=== PATIENT | male | born 1960 | race Caucasian/White ===

== ENCOUNTER 2024-04-14 17:56 | Emergency (ER) | payer BC ==
[~2024-04-14 17:56] MED LIST: Iopamidol 300 61% 100 ML VIAL FS ONE
[2024-04-14] MEDS ORDERED: Ondansetron PF 4 MG/2 ML Vial ONE (18:28)
[2024-04-14] MEDS ORDERED: Morphine 4 MG/ML VIAL ONE (18:28)
[2024-04-14 19:14] LABS: #Basophils 0.05 10x3/uL (0.0-0.2); #Eosinophils 0.28 10x3/uL (0.0-0.5); #Monocytes 0.86 10x3/uL (0.0-1.1); #Neutrophils 7.18 10x3/uL (1.5-8.4); %Basophils 0.5 % (0.0-2.0); %Eosinophils 2.9 % (0.0-6.0); %Lymphocytes 11.4 % (18.0-47.0); %Neutrophils 75.6 % (40.0-75.0); Hematocrit 40.3 % (38.8-50.0); Hemoglobin 13.7 g/dL (13.5-17.5); Mean Corpuscular Hemoglobin 32.2 pg (27.0-33.0); Mean Corpuscular Volume 94.8 fL (81.2-95.1); Mean Platelet Volume 11.4 fL (7.4-10.4); Platelet Count 213 10x3/uL (150-450); RBC Distribution Width 13.1 % (11.5-14.5); Red Blood Cell (RBC) Count 4.25 10x6/uL (4.32-5.72); White Blood Cell (WBC) Count 9.52 10x3/uL (3.5-10.5)
[2024-04-14 19:25] LABS: ALT (SGPT) 16 U/L (Less than 45); AST (SGOT) 25 U/L (11-34); Alkaline Phosphatase 59 U/L (40-110); Anion Gap 13 mmol/L (10-20); BUN (Urea Nitrogen) 14 mg/dL (8.4-25.7); Bilirubin, Total 0.3 mg/dL (0.3-1.2); Calc. Creatinine Clearance 0 mL/min (70-130); Calcium 9.7 mg/dL (7.8-10.44); Carbon Dioxide 24 mmol/L (23-31); Chloride 106 mmol/L (98-107); Estimated GFR 91; Globulin 2.5 g/dL (2.4-3.5); Glucose 199 mg/dL (80-115); Lipase 35 U/L (8-78); Potassium 3.8 mmol/L (3.5-5.1); Protein, Total 6.5 g/dL (5.8-8.1); Sodium 139 mmol/L (136-145)
[2024-04-14] MEDS ORDERED: fentaNYL 50 mcg/mL 1 mL Vial ONE (19:31)
[2024-04-14 20:15] LABS: Bilirubin Neg (Negative); Blood, Urine Negative (Negative); Clarity Clear (Clear); Glucose, Urine (Dipstick) Normal (Negative); Ketone, Urine Negative (Negative); Leukocyte Negative (Negative); Nitrite Negative (Negative); Protein, Urine (Dipstick) 15 mg/dl (Neg-Trace); Specific Gravity, Urine 1.005 (1.005-1.030); Urobilinogen Normal mg/dL (Less than 2)
[2024-04-14 20:22] LABS: CAUTI Indications for Culture Pelvic or flank pain; RBC/HPF None Seen HPF (0-3); Squamous Epithelial None Seen HPF (0-3); WBC/HPF None Seen HPF (0-3)
[2024-04-14 20:23] LABS: Bacteria/HPF None Seen HPF (None Seen); Urine Culture Reflex No No
[2024-04-14] MEDS ORDERED: Methocarbamol 500 MG TAB ONE (20:56)
[2024-04-14] MEDS ORDERED: Lidocaine 4% Patch ONE (20:56)
== END 2024-04-14 21:01 | disposition home or self-care (01) ==
LOC: CSHERS 17:56
DX: S30.1XXA Contusion of abdominal wall, initial encounter (principal); I10 Essential (primary) hypertension; J44.89 Other specified chronic obstructive pulmonary disease; E03.9 Hypothyroidism, unspecified; E11.9 Type 2 diabetes mellitus without complications; F17.210 Nicotine dependence, cigarettes, uncomplicated; W20.8XXA Other cause of strike by thrown, projected or falling object, initial encounter
CPT/HCPCS: 36415; 71045; 74177; 80053; 81001; 83690; 85025; 86850; 86900; 86901; 93005; 96374; 96375; J2270; J2405; J3010; Q9967

== ENCOUNTER 2024-10-05 15:43 | Emergency (ER) | payer BC ==
[2024-10-05 16:49] LABS: #Basophils 0.06 10x3/uL (0.0-0.2); #Eosinophils 0.39 10x3/uL (0.0-0.5); #Monocytes 0.70 10x3/uL (0.0-1.1); #Neutrophils 7.05 10x3/uL (1.5-8.4); %Basophils 0.6 % (0.0-2.0); %Eosinophils 4.0 % (0.0-6.0); %Lymphocytes 15.2 % (18.0-47.0); %Monocytes 7.2 % (0.0-10.0); %Neutrophils 72.8 % (40.0-75.0); Hematocrit 42.0 % (38.8-50.0); Hemoglobin 14.3 g/dL (13.5-17.5); Mean Corpuscular Hemoglobin 33.0 pg (27.0-33.0); Mean Corpuscular Volume 97.0 fL (81.2-95.1); Platelet Count 251 10x3/uL (150-450); Red Blood Cell (RBC) Count 4.33 10x6/uL (4.32-5.72); White Blood Cell (WBC) Count 9.69 10x3/uL (3.5-10.5)
[2024-10-05] MEDS ORDERED: Ondansetron PF 4 MG/2 ML Vial ONE (16:58)
[2024-10-05 17:07] LABS: ALT (SGPT) 25 U/L (Less than 45); AST (SGOT) 28 U/L (11-34); Albumin 4.2 g/dL (3.1-4.5); Alkaline Phosphatase 67 U/L (40-110); Anion Gap 17 mmol/L (10-20); BUN (Urea Nitrogen) 20 mg/dL (8.4-25.7); Bilirubin, Total 0.3 mg/dL (0.3-1.2); Calc. Creatinine Clearance 0 mL/min (70-130); Calcium 9.9 mg/dL (7.8-10.44); Carbon Dioxide 22 mmol/L (23-31); Chloride 106 mmol/L (98-107); Globulin 2.5 g/dL (2.4-3.5); Glucose 152 mg/dL (80-115); Lipase 30 U/L (8-78); Potassium 4.3 mmol/L (3.5-5.1); Sodium 141 mmol/L (136-145)
[2024-10-05] MEDS ORDERED: HYDROmorphone 0.5 MG/0.5 ML SYRINGE ONE (18:40)
[2024-10-05] MEDS ORDERED: Dicyclomine 20 MG TAB ONE (18:41)
[2024-10-05 19:30] LABS: Glucose, Urine (Dipstick) Normal (Negative); Leukocyte Negative (Negative); Protein, Urine (Dipstick) 15 mg/dl (Neg-Trace); Specific Gravity, Urine 1.015 (1.005-1.030)
[2024-10-05 20:12] LABS: CAUTI Indications for Culture Pelvic or flank pain; RBC/HPF 0-3 HPF (0-3); WBC/HPF 0-3 HPF (0-3)
[2024-10-05 20:13] LABS: Bacteria/HPF Rare-Few HPF (None Seen)
[2024-10-05 20:14] LABS: Mucous/LPF Rare LPF (<2+)
[2024-10-05 20:15] LABS: Urine Culture Reflex No No
== END 2024-10-05 19:31 | disposition home or self-care (01) ==
LOC: CSHERS 15:43
DX: R10.12 Left upper quadrant pain (principal); R10.13 Epigastric pain; K44.9 Diaphragmatic hernia without obstruction or gangrene; J44.89 Other specified chronic obstructive pulmonary disease; I10 Essential (primary) hypertension; F17.210 Nicotine dependence, cigarettes, uncomplicated
CPT/HCPCS: 71260; 74177; 80053; 81001; 83605; 83690; 85025; 93005; 96374; 96375; 96376; J1171; J2270; J2405; Q9967

== ENCOUNTER 2024-10-16 10:51 | Outpatient (CLI) | payer BC ==
[2024-10-16 13:41] LABS: #Basophils 0.07 10x3/uL (0.0-0.2); #Eosinophils 0.49 10x3/uL (0.0-0.5); #Monocytes 0.74 10x3/uL (0.0-1.1); #Neutrophils 6.62 10x3/uL (1.5-8.4); %Basophils 0.7 % (0.0-2.0); %Eosinophils 5.0 % (0.0-6.0); %Lymphocytes 18.0 % (18.0-47.0); %Monocytes 7.6 % (0.0-10.0); %Neutrophils 68.3 % (40.0-75.0); Hematocrit 43.4 % (38.8-50.0); Hemoglobin 14.4 g/dL (13.5-17.5); Mean Corpuscular Hemoglobin 32.7 pg (27.0-33.0); Mean Corpuscular Volume 98.6 fL (81.2-95.1); Platelet Count 284 10x3/uL (150-450); Red Blood Cell (RBC) Count 4.40 10x6/uL (4.32-5.72); White Blood Cell (WBC) Count 9.71 10x3/uL (3.5-10.5)
[2024-10-16 14:07] LABS: Anion Gap 16 mmol/L (10-20); BUN (Urea Nitrogen) 23 mg/dL (8.4-25.7); Calc. Creatinine Clearance 0 mL/min (70-130); Calcium 9.8 mg/dL (7.8-10.44); Carbon Dioxide 25 mmol/L (23-31); Chloride 100 mmol/L (98-107); Glucose 236 mg/dL (80-115); Potassium 4.9 mmol/L (3.5-5.1); Sodium 136 mmol/L (136-145)
== END 2024-10-16 10:52 | disposition home or self-care (01) ==
LOC: CSHLAB 10:51
PROVIDERS: ATTEND Specialist
DX: Z01.818 Encounter for other preprocedural examination (principal); Q79.0 Congenital diaphragmatic hernia
CPT/HCPCS: 71046; 80048; 85025

== ENCOUNTER 2024-10-22 08:53 | Observation (INO) | payer BC ==
[2024-10-22] MEDS ORDERED: Ketorolac Tromethamine 30 MG (1 mL) VIAL ONE (09:20)
[2024-10-22] MEDS ORDERED: Acetaminophen 500 MG TAB ONE (09:20)
[2024-10-22] MEDS ORDERED: Bupivacaine/Epinephrine 0.25% 30 ML VIAL ONE (09:28)
[2024-10-22] MEDS ORDERED: CEFAZOLIN 2 GM VIAL ONE (09:28)
[2024-10-22] MEDS ORDERED: PROPOFOL 20 ML ONE ×2 (10:03→11:25)
[2024-10-22] MEDS ORDERED: Rocuronium Bromide 10 MG/ML (10ML VIAL) ONE ×2 (10:07→11:50)
[2024-10-22] MEDS ORDERED: Lidocaine 1% PF 5 ML VIAL ONE (10:07)
[2024-10-22] MEDS ORDERED: Phenylephrine 40 MG/NS 250 ML 0 ML ONE (10:36)
[2024-10-22] MEDS ORDERED: NOREPINEPHRINE 8 MG/250 ML-D5W 0 ML ONE (10:37)
[2024-10-22] MEDS ORDERED: Metoprolol Tartrate 5 MG (5 mL) VIAL ONE (11:31)
[2024-10-22] MEDS ORDERED: Ondansetron PF 4 MG/2 ML Vial ONE (13:03)
[2024-10-22] MEDS ORDERED: SUGAMMADEX SODIUM 200 MG/2 ML VIAL ONE (13:03)
[2024-10-22] MEDS ORDERED: hydrALAZINE 20 MG/ML VIAL SLOW IVP PRN (15:48)
[2024-10-22] MEDS ORDERED: Ondansetron PF 4 MG/2 ML Vial IVP PRN (15:48)
[2024-10-22 16:01] VITALS: BMI 23.7
[2024-10-22] MEDS: Ketorolac Tromethamine 30 MG (1 mL) VIAL IVP SCH (18:00)
[2024-10-22] MEDS: Lisinopril 20 MG TAB PO SCH (21:25)
[2024-10-22] MEDS: Famotidine 20 MG TAB PO SCH (21:25)
[2024-10-22] MEDS: Pantoprazole 40 MG DR.TAB PO SCH (21:26)
[2024-10-22] MEDS: metFORMIN 500 MG TAB PO SCH (21:26)
[2024-10-22] MEDS: Metoprolol Succinate XL 25 MG ER.TAB PO SCH (21:26)
[2024-10-22] MEDS: Lantus 1000 UNITS/10 ML VIAL SC SCH (21:27)
[2024-10-22] MEDS: Famotidine/PF 20 mg/2ml Vial SLOW IVP SCH (22:02)
[2024-10-23 03:39] LABS: #Basophils 0.04 10x3/uL (0.0-0.2); #Eosinophils 0.14 10x3/uL (0.0-0.5); #Monocytes 0.86 10x3/uL (0.0-1.1); #Neutrophils 7.95 10x3/uL (1.5-8.4); %Basophils 0.4 % (0.0-2.0); %Eosinophils 1.3 % (0.0-6.0); %Lymphocytes 14.5 % (18.0-47.0); %Monocytes 8.2 % (0.0-10.0); %Neutrophils 75.3 % (40.0-75.0); Hematocrit 39.1 % (38.8-50.0); Hemoglobin 13.2 g/dL (13.5-17.5); Mean Corpuscular Hemoglobin 33.0 pg (27.0-33.0); Mean Corpuscular Volume 97.8 fL (81.2-95.1); Platelet Count 240 10x3/uL (150-450); Red Blood Cell (RBC) Count 4.00 10x6/uL (4.32-5.72); White Blood Cell (WBC) Count 10.55 10x3/uL (3.5-10.5)
[2024-10-23 03:51] LABS: Anion Gap 10 mmol/L (10-20); BUN (Urea Nitrogen) 16 mg/dL (8.4-25.7); Calc. Creatinine Clearance 87 mL/min (70-130); Calcium 9.0 mg/dL (7.8-10.44); Carbon Dioxide 29 mmol/L (23-31); Chloride 107 mmol/L (98-107); Glucose 78 mg/dL (80-115); Potassium 5.1 mmol/L (3.5-5.1); Sodium 141 mmol/L (136-145)
[2024-10-23 07:41] VITALS: TEMP 98.4
[2024-10-23] MEDS: HYDROcodone/Acetaminophen 7.5/325 mg Tablet PO PRN (08:42)
[2024-10-23] MEDS: glipiZIDE 5 MG TAB PO SCH (08:42)
[2024-10-23] MEDS: Lantus 1000 UNITS/10 ML VIAL SC SCH (08:43)
[2024-10-23 11:04] VITALS: BP 130/70
[2024-10-23] MEDS ORDERED: Dextrose 50% Abboject 50 ML SYRINGE SLOW IVP PRN (12:15)
[2024-10-23] MEDS ORDERED: Glucagon 1 MG/ML KIT IM PRN (12:15)
[2024-10-23] MEDS ORDERED: Acetaminophen 325 MG TAB PO PRN (13:36)
== END 2024-10-23 15:03 | disposition home or self-care (01) ==
LOC: CSHSDC 08:53 → CSHTELE 13:35
PROVIDERS: ADMIT Specialist; ATTEND Specialist
PROC: 0BUT4JZ Supplement Diaphragm with Synthetic Substitute, Percutaneous Endoscopic Approach (ICD-10-PCS; principal; 2024-10-22)
DX: Q79.0 Congenital diaphragmatic hernia (principal); I10 Essential (primary) hypertension; J45.909 Unspecified asthma, uncomplicated; F41.9 Anxiety disorder, unspecified; F17.200 Nicotine dependence, unspecified, uncomplicated; Z79.84 Long term (current) use of oral hypoglycemic drugs; Z79.51 Long term (current) use of inhaled steroids; Z79.899 Other long term (current) drug therapy
CPT/HCPCS: 36415; 36416; 80048; 85025; 94760; 96374; 96375; 96376; C1781; G0378; J1100; J1815; J1885; J2250; J2270; J2405; J2704; J3010; J7030; S2900